=== PATIENT | female | born 1990 | race Caucasian/White ===

== ENCOUNTER 2020-07-16 10:26 | Observation (INO) ==
[2020-07-16] MEDS: LACTATED RINGER'S 1,000 ML IV PRN ×2 (11:22→14:47)
[2020-07-16] MEDS ORDERED: BETAMETH SOD PHOS/ACETATE IA 6 MG/ML IM STA (11:23)
[2020-07-16] MEDS ORDERED: LACTATED RINGER'S 500 ML IV ONE (11:29)
[2020-07-16 11:39] LABS: Hematocrit (blood only) 42.1 % (37-47); Hemoglobin 14.5 g/dL (12.0-16.0); Mean Corpuscular Hemoglobin 32.2 pg (25-34); Mean Corpuscular Hgb Conc 34.4 g/dL (32-36); Mean Corpuscular Volume 93.3 fL (80-100); Platelet Count 255 K/uL (130-400); RDW Coefficient of Variation 13.1 % (11.5-14.5); RDW Standard Deviation 45.2 fL (36.4-46.3); Red Blood Count 4.51 M/uL (4.2-5.4); White Blood Count 14.92 K/uL (4.8-10.8)
--- NOTE | 2020-07-16 13:54 | Progress Note ---
Date of Service July 16, 2020 Assessment & Plan Admission and Anticipated Discharge Date Admission Date: July 16, 2020 Subjective Pt on arrival had ctx Q 2 mins FHR ; 140;s VE; minimal bloody dish cervix thick /closed /non effaced BMTZ given IVF given Repeat sono for MATI and cervical length done via radiology pt continues to have tx and back pain repeat cervical exam:unchanged plan admit Magnesium sulphate Pt agrees with plan Results & Data ([facility]) Vital Signs (Past 12 Hours) Vital Signs Temp Pulse Resp BP 07/16/20 13:43 77 108/68 07/16/20 13:42 37.3 C 20 07/16/20 10:32 37.2 C 103 H 20 108/70
[2020-07-16] MEDS ORDERED: MAG SULFATE 4GM BOLUS FROM BAG IV ONE (13:55)
--- NOTE | 2020-07-16 13:59 | Ultrasound Report ---
US OB limited CLINICAL HISTORY: at 28 + weeks. please measure MATI COMPARISON STUDY: No previous studies for comparison. FINDINGS: A limited obstetrical ultrasound was performed. The amniotic fluid index was 13 cm. A single live fetus in cephalic presentation was identified. heart rate was 157. The placenta was posterior fundal. The maternal cervix was closed and measured 46 mm. A anatomic study was not performed. IMPRESSION: 1. Limited study for assessment of amniotic fluid. The amniotic fluid index was 13 cm. ACT 112: Negative or not required by law. Electronically signed by: Baldomero Hamlin M.D. 07/16/2020 1:58 PM
[2020-07-16] MEDS ORDERED: MAGNESIUM SULFATE / WTR 40 GM/1,000 ML BAG IV SCH ×2 (14:00→20:15)
[2020-07-16 15:42] LABS: Appearance Urine Clear (Clear); Bilirubin Urine Negative (Negative); Blood Urine Negative (Negative); Color Urine Yellow; Glucose Urine UA Negative (Negative); Ketones Urine Trace (Negative); Leukocyte Esterase Urine Negative (Negative); Nitrite Urine Negative (Negative); Protein Urine Negative (Negative); Specific Gravity Urine 1.011 (1.000-1.030); Urobilinogen Urine Negative (Negative)
--- NOTE | 2020-07-16 19:36 | Progress Note ---
Date of Service July 16, 2020 Assessment & Plan Admission and Anticipated Discharge Date Admission Date: July 16, 2020 Subjective Pt reported more wetness in the vagina Nitrizine was negative. amnisure is +ve Pt is on 2gm Mg and continues to ctx Unchanged cervical exam discussed ?SROM with pt and spouse agree to transfer to [facility] spoke to Dr Galan at [facility] who has agreed to transfer Pt started on Amp and erythromycin Results & Data ([facility]) Vital Signs (Past 12 Hours) Vital Signs Temp Pulse Resp BP 07/16/20 19:19 96 H 98/65 L 07/16/20 19:05 36.8 C 18 07/16/20 19:00 20 07/16/20 18:49 106 H 93/65 L 07/16/20 18:30 37.2 C 20 07/16/20 18:19 84 108/68 07/16/20 18:00 20 07/16/20 17:49 85 98/57 L 07/16/20 17:30 18 07/16/20 17:19 88 98/57 L 07/16/20 17:00 18 07/16/20 16:50 81 94/57 L 07/16/20 16:30 18 07/16/20 16:19 83 96/59 L 07/16/20 16:00 18 07/16/20 15:49 86 108/64 07/16/20 15:30 20 07/16/20 15:19 75 102/63 07/16/20 15:03 88 94/58 L 07/16/20 14:47 84 101/61 07/16/20 14:32 90 104/67 07/16/20 14:30 20 07/16/20 14:21 20 07/16/20 14:18 80 20 97/61 L 07/16/20 13:43 77 108/68 07/16/20 13:42 37.3 C 20 07/16/20 10:32 37.2 C 103 H 20 108/70
[2020-07-16] MEDS ORDERED: BUTORPHANOL TARTRATE 1 MG/ML VIAL IV ONE (19:57)
[2020-07-16] MEDS ORDERED: BUTORPHANOL TARTRATE 1 MG/ML VIAL ONE (19:58)
[2020-07-16] MEDS ORDERED: ERYTHROMYCIN 250 MG in SODIUM CHLORIDE 0.9% 250 ML IV SCH (20:00)
[2020-07-16] MEDS ORDERED: AMPICILLIN 2,000 MG in SODIUM CHLOR 0.9% AD-VAN 100 ML IV SCH (20:00)
--- NOTE | 2020-07-16 20:00 | Progress Note ---
Date of Service July 16, 2020 Assessment & Plan Admission and Anticipated Discharge Date Admission Date: July 16, 2020 Subjective Transfer team here VE; closed /posterior Mag inc to 3gm/hour for transfer Results & Data ([facility]) Vital Signs (Past 12 Hours) Vital Signs Temp Pulse Resp BP 07/16/20 19:49 86 107/66 07/16/20 19:19 96 H 98/65 L 07/16/20 19:05 36.8 C 18 07/16/20 19:00 20 07/16/20 18:49 106 H 93/65 L 07/16/20 18:30 37.2 C 20 07/16/20 18:19 84 108/68 07/16/20 18:00 20 07/16/20 17:49 85 98/57 L 07/16/20 17:30 18 07/16/20 17:19 88 98/57 L 07/16/20 17:00 18 07/16/20 16:50 81 94/57 L 07/16/20 16:30 18 07/16/20 16:19 83 96/59 L 07/16/20 16:00 18 07/16/20 15:49 86 108/64 07/16/20 15:30 20 07/16/20 15:19 75 102/63 07/16/20 15:03 88 94/58 L 07/16/20 14:47 84 101/61 07/16/20 14:32 90 104/67 07/16/20 14:30 20 07/16/20 14:21 20 07/16/20 14:18 80 20 97/61 L 07/16/20 13:43 77 108/68 07/16/20 13:42 37.3 C 20 07/16/20 10:32 37.2 C 103 H 20 108/70
[2020-07-17] MEDS ORDERED: BETAMETH SOD PHOS/ACETATE IA 6 MG/ML IM SCH (11:30)
--- NOTE | 2020-08-02 05:20 | Discharge Summary (DS) ---
HISTORY OF PRESENT ILLNESS: This is a 30-year-old G1, P0, who called the office with a complaint of spontaneous rupture of membranes. She arrived to labor and delivery. On arrival to labor and delivery was no gross pooling, fern and Nitrazine were negative. The patient, however, was admitting every 2 minutes and with her story of ruptured membranes, decision was made to keep patient for prolonged observation. The patient continued to contract every 2 minutes. Speculum exam showed the patient's cervix was thick, closed and not effaced. Ultrasound done by radiology showed MATI was 13. The patient, however, continued to contract and on couple of episodes called our attention to a puddle in her underwear. Once again fern was checked again and was still negative. AmniSure was done and at this time was found to be positive. The patient was started on magnesium sulfate 2 grams an hour. It was eventually increased to 3 grams. She received betamethasone and started on antibiotics for latent phase of labor. [facility] was called and consulted for transfer. ____ agreed to the transfer. The patient was transferred to [facility] on 07/17/2020. PAST MEDICAL HISTORY: No history of diabetes, hypertension or asthma. has been uncomplicated until now. PAST SURGICAL HISTORY: None. SOCIAL HISTORY: The patient denies tobacco, drug or alcohol use. The patient is and lives with spouse. PHYSICAL EXAMINATION: VITAL SIGNS: On 07/16/2020, blood pressure is 107/66, pulse is 86, respirations 18, temperature 36.8. HEART: S1, S2, regular rhythm and rate. LUNGS: Clear to auscultation bilaterally. ABDOMEN: Gravid. EXTREMITIES: No cyanosis, clubbing or edema. OPERATION: Observation for premature rupture of membranes. DISCHARGE DIAGNOSIS: premature rupture of membranes. PLAN ON DISCHARGE: The patient was transferred to [facility] via ambulance.
== END 2020-07-16 20:15 | disposition short-term general hospital (02) ==
LOC: OPB 10:26 → 4S1 10:31 → INTOOBSV 11:23 → 4S1 11:23